=== PATIENT | male | born 2005 | race Caucasian/White ===

== ENCOUNTER 2024-03-06 10:57 | Emergency (ER) | payer OTHER ==
[~2024-03-06] VITALS: Ht 185.4 cm; Wt 84.1 kg
[2024-03-06 11:37] VITALS: TEMP 100.3
[2024-03-06] MEDS ORDERED: CLARITIN 1010 MG/TAB PO (11:42)
[2024-03-06] MEDS ORDERED: Ibuprofen 400 MG TAB PO ONE (12:30)
[2024-03-06 13:45] VITALS: BP 116/69; PULSE 100
== END 2024-03-06 13:45 | disposition home or self-care (01) ==
LOC: COL.ER 10:57
DX: U07.1 COVID-19 (principal); J02.9 Acute pharyngitis, unspecified; R50.9 Fever, unspecified; R05.9 Cough, unspecified; R09.81 Nasal congestion; M79.10 Myalgia, unspecified site